=== PATIENT | female | born 1995 | race Caucasian/White ===

== ENCOUNTER 2022-08-24 19:39 | Emergency (ER) | payer MEDICAID ==
[2022-08-24 21:11] VITALS: O2SAT 99
[2022-08-24] MEDS ORDERED: MOTRIN 600 MG PO ONE (21:27)
[2022-08-24] MEDS ORDERED: TYLENOL 325 MG PO STA (21:27)
[2022-08-24] MEDS ORDERED: TYLENOL 325 MG ONE (21:33)
[2022-08-24] MEDS ORDERED: MOTRIN 600 MG ONE (21:33)
[2022-08-24 21:56] LABS: INFLUENZA B NEGATIVE (NEGATIVE); RESPIRATORY SYNCTIAL VIRUS NEGATIVE (Negative); SARS-CoV-2 Xpert Express NEGATIVE (NEGATIVE)
--- NOTE | 2022-08-24 22:04 | ERPHSYRPT ---
- History of Present Illness Time Seen by Provider: 08/24/22 21:10 Source: patient Exam Limitations: no limitations Patient Subjective Stated Complaint: pt states since tuesday she has had fever, cough, runny nose, headache, and body aches. Triage Nursing Assessment: pt alert and oriented, answers questions approp. skin hot and dry. pt ambulaotry with steady gait noted. Physician History: Patient a 26-year-old female presents to our ED for evaluation of congestion fever generalized body aches. Symptoms started 2 days ago. Patient states she has been sleeping and laying around her home for 2 days. Decreased p.o. No nausea or vomiting no diarrhea. No rash. Patient has low-grade fever 100.9 at this time. Patient has not had any antipyretics since early this morning. Symptoms are constant. Symptoms are moderate in intensity. No specific worsening improving factors. Patient states her son recently diagnosed with RSV. Patient is a smoker she is otherwise healthy. She voices no other complaints or concerns at this time. Timing/Duration: today, day(s) (2 days) Severity: moderate Associated Symptoms: denies symptoms, No nausea, No vomiting, No shortness of breath, No diaphoresis, No chest pain, No syncope, No seizure, No weakness Allergies/Adverse Reactions: No Known Drug Allergies Allergy (Verified 08/24/22 21:11) Home Medications: No Reportable Medications [No Reported Medications] 08/24/22 [History] Hx Tetanus, Diphtheria Vaccination/Date Given: No Hx Influenza Vaccination/Date Given: No Hx Pneumococcal Vaccination/Date Given: No Immunizations Up to Date: No Travel Risk - International Travel Have you traveled outside of the country in past 3 weeks: No - Coronavirus Screening Are you exhibiting any of the following symptoms?: Yes Symptoms: Fever, Cough: New Onset, Shortness of Breath, Headaches/Body Aches/Fatigue Close contact with a COVID-19 positive Pt in past 14-21 Days: No - Vaccine Status Have you recieved a Covid-19 vaccination: No - Review of Systems Constitutional: No Symptoms, No Fever, No Chills Eyes: No Symptoms Ears, Nose, & Throat: No Symptoms Respiratory: No Symptoms, No Cough, No Dyspnea Cardiac: No Symptoms, No Chest Pain, No Edema, No Syncope Abdominal/Gastrointestinal: No Symptoms, No Abdominal Pain, No Nausea, No Vomiting, No Diarrhea Genitourinary Symptoms: No Symptoms, No Dysuria Musculoskeletal: No Symptoms, No Back Pain, No Neck Pain Skin: No Symptoms, No Rash Neurological: No Symptoms, No Dizziness, No Focal Weakness, No Sensory Changes Psychological: No Symptoms Endocrine: No Symptoms Hematologic/Lymphatic: No Symptoms Immunological/Allergic: No Symptoms All Other Systems: Reviewed and Negative - Past Medical History Pertinent Past Medical History: No - Past Surgical History Past Surgical History: No - Social History Smoking Status: Current every day smoker How long have you smoked: 14 yrs Exposure to second hand smoke: No Drug Use: none Patient Lives Alone: No - Female History Hx Last Menstrual Period: last month Hx Now: No - Nursing Vital Signs Nursing Vital Signs: Initial Vital Signs Temperature 100.9 F 08/24/22 21:01 Pulse Rate 103 H 08/24/22 21:01 Respiratory Rate 08/24/22 21:01 Blood Pressure 147/91 08/24/22 21:01 O2 Sat by Pulse Oximetry 99 08/24/22 21:01 Pain Scale Pain Intensity 10 - Physical Exam General Appearance: no apparent distress, alert, other (Nasal congestion) Eye Exam: PERRL/EOMI, eyes nml inspection Ears, Nose, Throat Exam: normal ENT inspection, TMs normal, pharynx normal, moist mucous membranes Neck Exam: normal inspection, non-tender, supple, full range of motion Respiratory Exam: normal breath sounds, lungs clear, No respiratory distress Cardiovascular Exam: regular rate/rhythm, normal heart sounds, normal peripheral pulses Gastrointestinal/Abdomen Exam: soft, normal bowel sounds, No tenderness, No mass Back Exam: normal inspection, normal range of motion, No CVA tenderness, No vertebral tenderness Extremity Exam: normal inspection, normal range of motion, pelvis stable Neurologic Exam: alert, oriented x 3, cooperative, normal mood/affect, nml cerebellar function, nml station & gait, sensation nml, No motor deficits Skin Exam: normal color, warm, dry, No rash Lymphatic Exam: No adenopathy SpO2 Interpretation: normal SpO2: 99 O2 Delivery: Room Air - Course Nursing assessment & vital signs reviewed: Yes Ordered Tests: Medication Summary Discontinued Medications Generic Name Dose Route Start Last Admin Trade Name Freq PRN Reason Stop Dose Admin Acetaminophen 975 mg 08/24/22 21:27 08/24/22 21:35 Acetaminophen 325 Mg Tablet PO 08/24/22 21:28 975 mg STAT STA Administration Acetaminophen Confirm 08/24/22 21:33 Acetaminophen 325 Mg Tablet Administered 08/24/22 21:34 Dose 975 mg .ROUTE .STK-MED ONE Ibuprofen 600 mg 08/24/22 21:27 08/24/22 21:34 Ibuprofen 600 Mg Tablet PO 08/24/22 21:28 600 mg STAT ONE Administration Ibuprofen Confirm 08/24/22 21:33 Ibuprofen 600 Mg Tablet Administered 08/24/22 21:34 Dose 600 mg .ROUTE .STK-MED ONE Lab/Rad Data: Laboratory Results 08/24/22 Range/Units 21:19 Influenza Type A Ag POSITIVE (NEGATIVE) Influenza Type B Ag NEGATIVE (NEGATIVE) RSV (PCR) NEGATIVE (Negative) SARS-CoV-2 (PCR) NEGATIVE (NEGATIVE) - Progress Progress: improved Progress Note: Patient influenza positive. Patient tolerating p.o. No nausea no vomiting. Patient has some generalized myalgias which are improving after administration of Tylenol Motrin. No indication for further work-up at this time. Will discharge home. Supportive care indicated at this time. No antibiotics. Patient states she does not have a primary care doctor. Patient given a referral to Dr. Casillas for follow-up within 48 hours. Patient voices no other complaints or concerns at this time. Portions of this note were created with voice recognition technology. There may be grammatical, spelling, punctuation or sound alike errors 08/24/22 22:12 Counseled pt/family regarding: lab results, diagnosis, need for follow-up - Departure Departure Disposition: Home Clinical Impression: Influenza A, Viral syndrome Condition: Stable Critical Care Time: No Referrals: DOCTOR,NO FAMILY [Primary Care Provider] - Follow up/PCP as directed GARETH EISENBERG [ACTIVE STAFF] - Follow up/PCP as directed Instructions: Fever, Adult (DC) Additional Instructions: Discharge/Care Plan JAZMINEMURTAZAANIYAHLAWANDA NIKKI was seen on 08/24/22 in the Emergency Room. The patient was counseled regarding Diagnosis,Lab results, Imaging studies, need for follow up and when to return to the Emergency Room. Prescriptions given: Discharge Note I have spoken with the patient and/or caregivers. I have explained the patient's condition, diagnosis and treatment plan based on the information available to me at this time. I have answered the patient's and/or caregiver's questions and addressed any concerns. The patient and/or caregivers have as good understanding of the patient's diagnosis, condition and treatment plan as can be expected at this point. The vital signs have been stable. The patient's condition is stable and appropriate for discharge from the emergency department. The patient will pursue further outpatient evaluation with the primary care physician or other designated or consulting physician as outlined in the discharge instructions. The patient and/or caregivers are agreeable to this plan of care and follow-up instructions have been explained in detail. The patient and/or caregivers have received these instruction. The patient/and or caregivers are aware that any significant change in condition or worsening of symptoms should prompt an immediate return to this or the closest emergency department or call 911. Forms: Work/School Release Form
[2022-08-24 22:08] LABS: INFLUENZA A POSITIVE (NEGATIVE)
[2022-08-24 22:10] VITALS: BP 123/85; PULSE 94
[2022-08-24] MEDS ORDERED: TYLENOL EXTRA STRENGTH 500 MG PO STA (22:22)
[2022-08-24] MEDS ORDERED: TYLENOL EXTRA STRENGTH 500 MG ONE (22:24)
== END 2022-08-24 22:30 | disposition home or self-care (01) ==
LOC: ED 19:39
DX: J10.1 Influenza due to other identified influenza virus with other respiratory manifestations (principal); R50.9 Fever, unspecified; R09.81 Nasal congestion; M79.10 Myalgia, unspecified site; Z28.310 Unvaccinated for COVID-19; Z72.0 Tobacco use
CPT/HCPCS: 0241U; 99283; A9270-GY

== ENCOUNTER 2023-09-10 13:51 | Emergency (ER) | payer MEDICAID, OTHER ==
[2023-09-10 14:19] VITALS: BP 138/63; PULSE 112; RESP 20; TEMP 97.3; O2SAT 94
--- NOTE | 2023-09-10 14:56 | ERPHSYRPT ---
- History of Present Illness Time Seen by Provider: 09/10/23 14:09 Source: patient Exam Limitations: no limitations Patient Subjective Stated Complaint: Wellness- swallowed tongue ring/16 weeks Triage Nursing Assessment: Patient ambulated back to ED and transferred self to bed. Patient A+O X3. Patient's skin pink, warm and dry. Patient currently 16 weeks preganant and was eating chips when she noticed she swallowed her tongue ring. Patient states she take tongue ring out for work and it must have been lose. Patient denies pain or discomfort. Patient did call [facility] and was told to come to ED for eval. Physician History: 27 years old with 16 weeks gestation presented in the ER for evaluation after she accidentally swallowed tongue ring while eating chips. Patient reports she takes it off while at work and it was probably lose. Patient denies any abdominal pain nausea vomiting. She called her [employer] and was recommended to be seen in the ER. Allergies/Adverse Reactions: No Known Drug Allergies Allergy (Verified 09/10/23 14:08) Home Medications: No Reportable Medications [No Reported Medications] 08/24/22 [History] Hx Tetanus, Diphtheria Vaccination/Date Given: No Hx Influenza Vaccination/Date Given: No Hx Pneumococcal Vaccination/Date Given: No Immunizations Up to Date: Yes Travel Risk - International Travel Have you traveled outside of the country in past 3 weeks: No - Coronavirus Screening Are you exhibiting any of the following symptoms?: No Close contact with a COVID-19 positive Pt in past 14-21 Days: No - Vaccine Status Have you recieved a Covid-19 vaccination: No - Review of Systems Constitutional: No Symptoms Eyes: No Symptoms Ears, Nose, & Throat: No Symptoms Respiratory: No Symptoms Cardiac: No Symptoms Abdominal/Gastrointestinal: No Symptoms Musculoskeletal: No Symptoms Endocrine: No Symptoms Hematologic/Lymphatic: No Symptoms - Past Medical History Pertinent Past Medical History: No - Past Surgical History Past Surgical History: No - Social History Smoking Status: Current every day smoker How long have you smoked: 14 yrs Exposure to second hand smoke: No Drug Use: marijuana Patient Lives Alone: No - Female History Hx Last Menstrual Period: May Hx Now: Yes Gestational Age: 16 weeks - Nursing Vital Signs Nursing Vital Signs: Initial Vital Signs Temperature 97.3 F 09/10/23 14:09 Pulse Rate 112 H 09/10/23 14:09 Respiratory Rate 20 09/10/23 14:09 Blood Pressure 138/63 09/10/23 14:09 O2 Sat by Pulse Oximetry 94 L 09/10/23 14:09 Pain Scale Pain Intensity 0 - Physical Exam General Appearance: no apparent distress, alert Eye Exam: PERRL/EOMI Ears, Nose, Throat Exam: normal ENT inspection Neck Exam: normal inspection, full range of motion Respiratory Exam: normal breath sounds, lungs clear Cardiovascular Exam: regular rate/rhythm, normal heart sounds Gastrointestinal/Abdomen Exam: soft, normal bowel sounds, No tenderness Extremity Exam: normal inspection, normal range of motion Neurologic Exam: alert, oriented x 3, cooperative Skin Exam: normal color SpO2 Interpretation: normal SpO2: 94 O2 Delivery: Room Air - Progress Progress: unchanged Progress Note: 09/10/23 14:50 27 years old with 16 weeks gestation presented in the ER for evaluation after she accidentally swallowed tongue ring while eating chips. Patient reports she takes it off while at work and it was probably lose. Patient denies any abdominal pain nausea vomiting. She called her [employer] and was recommended to be seen in the ER. Patient is not in any distress, abdominal exam is soft nontender. I have offered her x-rays after discussing the risk and benefits while she has been and she declined. Recommended, discussed signs symptoms of worsening and need to return to ER which she seems understanding. Stable for discharge. Counseled pt/family regarding: diagnosis, need for follow-up - Departure Departure Disposition: Home Clinical Impression: Foreign body, swallowed Condition: Stable Critical Care Time: No Referrals: DOCTOR,NO FAMILY [Primary Care Provider] - Follow up/PCP as directed Instructions: Swallowed Objects, Adult (DC) Additional Instructions: Follow-up with primary care/[employer] for reevaluation. Return to ER immediately if having abdominal pain, nausea vomiting/fever chills etc.
== END 2023-09-10 15:14 | disposition home or self-care (01) ==
LOC: ED 13:51
DX: T18.9XXA Foreign body of alimentary tract, part unspecified, initial encounter (principal); W44.D4XA Magnetic metal jewelry entering into or through a natural orifice, initial encounter; Z28.310 Unvaccinated for COVID-19; Z72.0 Tobacco use; Z33.1 Pregnant state, incidental
CPT/HCPCS: 99281